=== PATIENT | male | born 1970 | race Two or more races ===

== ENCOUNTER 2018-04-07 22:10 | Emergency (ER) | payer SELFPAY ==
[~2018-04-07] VITALS: Ht 170.2 cm; Wt 70.3 kg
--- NOTE | 2018-04-07 22:14 | Emergency Room Report ---
History of Present Illness General Chief Complaint: To Be Triaged Source: Patient Present Illness HPI Is a 47-year-old old male with no past medical history. He presents with right flank pain. Onset this morning. Gradually getting worse until tonight. Pain now to the right groin area. 10 out of 10. Unknown hematuria. No fever or chills. Pain is 10 out of 10 pain sharp in nature. Nausea but no vomiting. No diarrhea. Never had this problem before. Nothing made it better. Nothing made it worse. Allergies: Coded Allergies: No Known Allergies (Unverified , 04/07/18) Patient History Past Medical History: see triage record, old chart reviewed Past Surgical History: none Pertinent Family History: none Social History: Reports: alcohol use - Social Immunizations: other Reviewed Nursing Documentation: PMH: Agreed; PSxH: Agreed Review of Systems Eye: Denies: eye pain, blurred vision ENT: Denies: ear pain, nose congestion, throat swelling Respiratory: Denies: cough, shortness of breath Cardiovascular: Denies: chest pain, palpitations Gastrointestinal: Denies: abdominal pain, diarrhea, nausea, vomiting Musculoskeletal: Denies: back pain, joint pain Skin: Denies: rash Neurological: Denies: headache, numbness Endocrine: Denies: increased thirst, increased urine Hematologic/Lymphatic: Denies: easy bruising All Other Systems: negative except mentioned in HPI Physical Exam Sp02 EP Interpretation: reviewed, normal General Appearance: well appearing, no apparent distress, alert, other - Patient in pain Head: normocephalic, atraumatic Eyes: bilateral eye PERRL, bilateral eye EOMI ENT: hearing grossly normal, normal pharynx Neck: full range of motion, supple, no meningismus Respiratory: chest non-tender, lungs clear, normal breath sounds Cardiovascular #1: regular rate, rhythm, no murmur Gastrointestinal: normal bowel sounds, non tender, no mass, no organomegaly, no bruit, non-distended Musculoskeletal: back normal, gait/station normal, normal range of motion Psychiatric: mood/affect normal Skin: warm/dry Medical Decision Making Diagnostic Impression: Primary Impression: Abdominal pain Qualified Codes: R10.31 - Right lower quadrant pain Additional Impression: Anemia Qualified Codes: D64.9 - Anemia, unspecified ER Course Patient with abdominal pain and flank pain. He may have passed a small kidney stone. No evidence of obstruction. No evidence of infection. No evidence of appendicitis. This may be gas pain also from constipation. We'll discharge home. Lab Results Impression labs unremarkable CT/MRI/US Diagnostic Results CT/MRI/US Diagnostic Results : Imaging Test Ordered: CT abdomen and pelvis Impression Read by radiologist. No appendicitis. Moderate colonic stool. No hydronephrosis or ureteral stone. Bilateral nephrolithiasis. Status: improved Disposition: HOME, SELF-CARE Condition: Stable Scripts Ibuprofen* (MOTRIN*) 600 Mg Tablet 600 MG ORAL THREE TIMES A DAY, #30 TAB 0 Refills Prov: VINAY SANFORD M.D. 04/08/18 Additional Instructions: Follow-up with your doctor in 7 days. Return if symptom worsen. VINAY SANFORD M.D. Apr 07, 2018 22:14
[2018-04-07] MEDS ORDERED: Morphine Sulfate 4mg/ml Inj (IV USE ONLY) IVP ONE ×2 (22:15→23:30)
[2018-04-07] MEDS ORDERED: Ketorolac 30mg Inj IV ONE (22:15)
[2018-04-07 22:31] LABS: APPEARANCE,URINE CLEAR; BASOPHILS % (AUTO) 1.3 % (0.0-2.0); BILIRUBIN, URINE NEGATIVE (NEGATIVE); COLOR,URINE PALE YELLOW; EOSINOPHILS % (AUTO) 9.7 % (0.0-3.0); GLUCOSE, URINE (UA) NEGATIVE (NEGATIVE); HEMOGLOBIN 10.6 G/DL (14.2-18.0); KETONES,URINE NEGATIVE (NEGATIVE); LEUKOCYTE ESTERASE ,URINE NEGATIVE (NEGATIVE); MEAN CORPUSCULAR VOLUME 69 FL (80-99); MONOCYTES % (AUTO) 4.5 % (1.0-10.0); NEUTROPHILS % (AUTO) 66.5 % (45.0-75.0); NITRITE,URINE NEGATIVE (NEGATIVE); PH,URINE 6 (4.5-8.0); PLATELET COUNT 632 K/UL (150-450); PROTEIN,URINE NEGATIVE (NEGATIVE); RED BLOOD COUNT 5.04 M/UL (4.70-6.10); RED CELL DISTRIBUTION WIDTH 16.2 % (11.6-14.8); UROBILINOGEN,URINE NORMAL MG/DL (0.0-1.0); WHITE BLOOD COUNT 11.9 K/UL (4.8-10.8)
[2018-04-07 22:40] LABS: ANION GAP 11 mmol/L (5-15); BLOOD UREA NITROGEN 19 mg/dL (7-18); CALCIUM 9.3 MG/DL (8.5-10.1); CARBON DIOXIDE 26 MMOL/L (21-32); CHLORIDE 102 MMOL/L (98-107); CREATININE 1.1 MG/DL (0.55-1.30); POTASSIUM 3.9 MMOL/L (3.5-5.1); SODIUM 139 MMOL/L (136-145)
[2018-04-07 23:00] VITALS: BP 133/90
[2018-04-07] MEDS ORDERED: Morphine Sulfate 4mg/ml Inj (IV USE ONLY) ONE (23:30)
[2018-04-08] MEDS ORDERED: IBUPROFEN600 MG ORAL (00:03)
[2018-04-08 00:15] VITALS: BP 132/81
[2018-04-08 00:30] VITALS: BP 133/90
--- NOTE | 2018-04-08 10:10 | Diagnostic Imaging Report ---
Indication: Right flank pain Technique: Spiral acquisitions obtained through the abdomen and pelvis. No oral or IV contrast utilized, per urinary stone protocol. Multiplanar reconstructions were generated. Total dose length product 670.65 mGycm. CTDIvol(s) 12.54 mGy. Dose reduction achieved using automated exposure control Comparison: none Findings: Multiple calculi are seen in the renal collecting systems bilaterally, larger and more numerous on the right, largest right-sided calculus measuring 6 mm long axis dimension no ureteral calculi, hydronephrosis, or hydroureter demonstrated. No bladder calculi demonstrated. Lack of IV contrast limits assessment of the renal parenchyma. No gross renal parenchymal mass or cyst demonstrated. Lack of IV contrast limits assessment of the other solid organs. The liver, gallbladder, bile ducts, pancreas, spleen, adrenals are all unremarkable. No retroperitoneal or mesenteric mass or adenopathy. No pelvic mass or adenopathy. The appendix is normal. Small bowel feces are seen in the distal ileum, but small bowel loops are not frankly distended. There is considerable distal colonic diverticulosis. No evidence of diverticulitis. Distal esophagus, stomach, duodenum are unremarkable. No free intraperitoneal gas or fluid is demonstrated. There is a tiny fat-containing umbilical hernia. The included lung bases are clear. The bones are unremarkable. Impression: No acute abnormality. Negative for evidence of obstructive uropathy Bilateral right greater than the left nonobstructive intrarenal calculi Fecalized distal small bowel contents, of uncertain significance as there is no evidence of obstructive pathology Colonic diverticulosis Incidental finding of tiny fat-containing umbilical hernia This essentially agrees with the preliminary interpretation provided overnight by [facility] teleradiology service, with some additional nonsignificant findings The CT scanner at [facility] is accredited by the [employer] and the scans are performed using protocols designed to limit radiation exposure to as low as reasonably achievable to attain images of sufficient resolution adequate for diagnostic evaluation.
== END 2018-04-08 00:30 | disposition home or self-care (01) ==
LOC: EMR 22:35
DX: R10.31 Right lower quadrant pain (principal); D64.9 Anemia, unspecified; K59.00 Constipation, unspecified
CPT/HCPCS: 36415; 74176; 80048; 81003; 85025; 96361; 96374; 96375; 96376; 99285; J1885; J2270; J2405